=== PATIENT | male | born 1955 | race Caucasian/White ===

== ENCOUNTER 2024-12-07 08:26 | Outpatient (REF) | payer OTHER, SELFPAY ==
--- NOTE | ~2024-12-07 | US_ITS ---
CLINICAL HISTORY: epigastric pain US abdomen complete Comparison: None Provided Findings: Gallbladder unremarkable, no stone formation or wall thickening. Common duct measures 3.0 mm. No sonographic Archer sign. Liver is homogeneous and normal in size and echogenicity. Main portal vein patent with normal direction of flow. Pancreas is unremarkable. Aorta and IVC patent and normal in caliber. The right kidney is normal, 10.4 cm in length. No focal abnormality or hydronephrosis. The left kidney is normal, 10.5 cm in length. No focal abnormality or hydronephrosis. The spleen is normal, 9.3 cm in length. No focal abnormality. Impression: No significant abnormalities. This document has been electronically signed by: Mic Pryor MD on 12/07/2024 20:34:56
--- OUTSIDE RECORDS SUMMARY | 2024-12-07 08:45 | XMS_ITS | Clinical Summary ---
Author Organization [facility] Address [address] [place] [address] Care Team Providers Care Woodwinds Teacher Name Role Phone Unavailable Primary Care Provider [...] Description 01/18/2025 2:30 PM EST Procedure visit [facility] [place] [address] [place] [phone] Danis Garrido MD [address] [place] [address] Elizabeth Sawyer Au.D [address] [place] [address] Health Maintenance Due Date Last Done Comments [...] patient's age to complete this topic Insurance [facility]
--- OUTSIDE RECORDS SUMMARY | 2024-12-07 08:45 | XMS_ITS | Patient Health Record ---
Author Organization [facility] Address [address] [place] [address] Care Team Providers Care Sheriff Name Role Phone Jakub Bradford MD Primary Care Provider Varun Connell [phone] Allergies No Known Allergies Reason For Referral [...] Status Risk Notes Problem Colon cancer screening (790537961) Colon cancer screening (Z12.11) Active confirmed Problem Epigastric pain (60829799) Epigastric pain (R10.13) Active confirmed Problem History of adenomatous polyp of colon (969696222) History of adenomatous polyp of colon (Z86.0101) Active confirmed Vital Signs Blood pressure diastolic 77 mm Hg 10/21/2024 Height 71 in 10/21/2024 Blood pressure systolic 111 mm Hg 10/21/2024 Weight 181 lbs 10/21/2024 BMI 25.24 kg/m2 10/21/2024 Procedures Procedure Date Ordered Date Performed Result Body Sit e COLONOSCOPY 10/21/2024 N/A Encounters Encounter Location Date Provider Diagnosis [facility] [address] [place] [phone] 10/21/2024 Varun Brandon History of adenomato us [...] continue to watch his diet and use hjuf-zuf-npnxabx acid suppression as needed. I did advise [...] continue to watch his diet and use uirx-xot-jucvldv acid suppression as needed. I did advise [...] continue to watch his diet and use kofz-fbl-xseepys acid suppression as needed. I did advise [...] Provider Name:Varun Brandon , 01/21/2025 10:30:00 AM, [address] [place] [address] , [place], [place], [phone], Insurance Providers Payer Name Payer Address Payer Phone Subscriber Number Group Number Insured Name Patient Relationship to Insured Coverage Start Date Coverage End Date [facility] [address] [place] [phone] [id number] FARHANA MURRAY Self - patient is the insured Medical (General) History Medical History History ICD Code Colonoscopy 02-15-03-negative EGD 02-23-2002 and 08/2011--n egative except for a small hiatal hernia--there was no evidence of any esophagitis, H. pylori, nor celiac disease Meniere's disease Denies MD,DM,CVA,Lung disease,renal dise ase Screening colonoscopy in with [...]
--- OUTSIDE RECORDS SUMMARY | 2024-12-07 08:45 | XMS_ITS | Patient Health Record ---
Author Organization [facility] Address [address] [facility] [place] [address] Care Team Providers Care Temperature Inspector Name Role Phone Jakub Bradford MD Primary Care Provider Reji Morales Unavailable [phone] Allergies No Known Allergies Reason For Referral [...] primary osteoarthritis of the ankle and/or foot (214376467) Primary osteoarthrit is, left ankle and foot (M19.072) Active confirmed Problem Acquired hammer toe of left foot (5286198272658936) Other hammer toe(s) (acquired), left foot (M20.42) Active confirmed Plan Of Treatment Pending Test Test Name Order Date X ray : Foot, left 3V 07/03/2022 Insurance Providers Payer Name Payer Address Payer Phone Subscriber Number Group Number Insured Name Patient Relationship to Insured Coverage Start Date Coverage End Date [facility] [address] [facility] [id number] Paco Barajas Self - patient is the insured 3 Medical (General) History Medical History History ICD Code Menieres disease Reflux ( GERD) Mumps Chicken pox Surgical History Surgery Date(Month/Year)
== END 2024-12-07 08:27 | disposition home or self-care (01) ==
LOC: HO.US 08:26
PROVIDERS: PCP Internal Medicine; Visit Provider Internal Medicine
DX: R10.13 Epigastric pain (principal)
CPT/HCPCS: 76700

== ENCOUNTER → 2024-12-07 08:47 | Outpatient (BNV) | payer OTHER, SELFPAY | PROVIDERS: PCP Internal Medicine; Visit Provider Radiology Diagnostic Radiology | DX: R10.13 Epigastric pain (principal) | CPT/HCPCS: 76700 ==

== ENCOUNTER 2025-01-21 08:23 | Day surgery (SDC) | payer OTHER, SELFPAY ==
--- OUTSIDE RECORDS SUMMARY | 2024-11-30 09:18 | XMS_ITS | Patient Health Record ---
Author Organization [facility] Address [address] [place] [address] Care Team Providers Care Securities Sales Associate Name Role Phone Jakub Bradford MD Primary Care Provider Reji Morales Unavailable [phone] Allergies No Known Allergies Reason For Referral No Information Medications Medication SIG (Take, Route, Frequency, Duration) Notes Start Date End Date Status Voltaren 1 % as directed Externally 07/03/2022 Active Ambien 10 MG 1 tablet at bedtime as needed Active Social History Tobacco Use: Social History Observation Description Date Details (start date - stop date) Never Smoker NA - NA Tobacco Use/Smoking Question Answer Notes Are you a: nonsmoker Alcohol Screen Question Answer Notes Did you have a drink containing alcohol in the p ast year? Yes Points 0 Interpretation Negative Tobacco use other than smoking: Question Answer Notes Are you an other tobacco user? No Problems Problem Type SNOMED Code ICD Code Onset Dates Problem Status W/U Status Risk Notes Problem Localized, primary osteoarthritis of the ankle and/or foot (111028332) Primary osteoarthrit is, left ankle and foot (M19.072) Active confirmed Problem Acquired hammer toe of left foot (2290389564949003) Other hammer toe(s) (acquired), left foot (M20.42) Active confirmed Plan Of Treatment Pending Test Test Name Order Date X ray : Foot, left 3V 07/03/2022 Insurance Providers Payer Name Payer Address Payer Phone Subscriber Number Group Number Insured Name Patient Relationship to Insured Coverage Start Date Coverage End Date [facility] [address] [facility] [id number] Paco Barajas Self - patient is the insured 3 Medical (General) History Medical History History ICD Code Menieres disease Reflux ( GERD) Mumps Chicken pox Surgical History Surgery Date(Month/Year)
--- OUTSIDE RECORDS SUMMARY | 2024-11-30 09:18 | XMS_ITS ---
Author Name [facility] Organization Unknown Care Team Organization Name Specialty Phone Email Start Date End [facility] 11/16/2024
--- OUTSIDE RECORDS SUMMARY | 2024-11-30 09:18 | XMS_ITS | Patient Health Record ---
Author Organization [facility] Address [address] [place] [address] Care Team Providers Care Early Morning Name Role Phone Jakub Bradford MD Primary Care Provider Varun Connell [phone] Allergies No Known Allergies Reason For Referral No Information Medications Medication SIG (Take, Route, Frequency, Duration) Notes Start Date End Date Status Atorvastatin Calcium 40 MG 1 tablet Oral ly Once a day Active Multivitamin - 1 tablet Orally Once a day Active Ambien Active Problems Problem Type SNOMED Code ICD Code Onset Dates Problem Status W/U Status Risk Notes Problem Colon cancer screening (024516429) Colon cancer screening (Z12.11) Active confirmed Problem Epigastric pain (97385761) Epigastric pain (R10.13) Active confirmed Problem History of adenomatous polyp of colon (632330638) History of adenomatous polyp of colon (Z86.0101) Active confirmed Vital Signs Blood pressure diastolic 77 mm Hg 10/21/2024 Height 71 in 10/21/2024 Blood pressure systolic 111 mm Hg 10/21/2024 Weight 181 lbs 10/21/2024 BMI 25.24 kg/m2 10/21/2024 Procedures Procedure Date Ordered Date Performed Result Body Sit e COLONOSCOPY 10/21/2024 N/A Encounters Encounter Location Date Provider Diagnosis [facility] [address] [place] [phone] 10/21/2024 Varun Brandon History of adenomato us polyp of colon Z86.0101 ; Epigastric pain R10.13 and Colon cancer screening Z12.11 Assessments Encounter Date Diagnosis (ICD Code) Assessment Notes Treatment Notes Treatment Clinical Notes Section Notes 10/21/2024 Epigastric pain (ICD-10 - R10.13) Overall, Lawrence appears quite well. He is not having any particularly worrisome or new GI symptoms. His reflux does not seem worrisome and given previously negative upper endoscopies, relatively infrequent symptoms, and no worrisome symptoms such as dysphagia or anorexia, I do not think an upper endoscopy is required. I did advise him to continue to watch his diet and use qgeq-uec-mgrfezr acid suppression as needed. I did advise him to certainly let me know if things worsen in that regard or he develops any other symptoms such as dysphagia or anorexia. I did recommend an abdominal ultrasound just to rule out gallstones given the occasional symptoms, as well as 1 that awakened him at night last year that prompted his negative cardiac workup. Lastly, I did recommend a colonoscopy for screening given his last one being about 10 years ago and the finding of a small tubular adenoma at that time. We did review the rationale for that in regard to colon cancer prevention. Full consent has been taken for this, including risks of bleeding and perforation. The procedure will be done with monitored anesthesia care. Lawrence was comfortable with this plan. Thank you again for allowing me to participate in Lawrence's care. I shall continue to keep you advised of his progress. 10/21/2024 History of adenomatous polyp of colon (ICD-10 - Z86.0101) Overall, Lawrence appears quite well. He is not having any particularly worrisome or new GI symptoms. His reflux does not seem worrisome and given previously negative upper endoscopies, relatively infrequent symptoms, and no worrisome symptoms such as dysphagia or anorexia, I do not think an upper endoscopy is required. I did advise him to continue to watch his diet and use piiw-gva-jmrrhcv acid suppression as needed. I did advise him to certainly let me know if things worsen in that regard or he develops any other symptoms such as dysphagia or anorexia. I did recommend an abdominal ultrasound just to rule out gallstones given the occasional symptoms, as well as 1 that awakened him at night last year that prompted his negative cardiac workup. Lastly, I did recommend a colonoscopy for screening given his last one being about 10 years ago and the finding of a small tubular adenoma at that time. We did review the rationale for that in regard to colon cancer prevention. Full consent has been taken for this, including risks of bleeding and perforation. The procedure will be done with monitored anesthesia care. Lawrence was comfortable with this plan. Thank you again for allowing me to participate in Lawrence's care. I shall continue to keep you advised of his progress. 10/21/2024 Colon cancer screening (ICD-10 - Z12.11) Overall, Lawrence appears quite well. He is not having any particularly worrisome or new GI symptoms. His reflux does not seem worrisome and given previously negative upper endoscopies, relatively infrequent symptoms, and no worrisome symptoms such as dysphagia or anorexia, I do not think an upper endoscopy is required. I did advise him to continue to watch his diet and use vuwv-uez-gckqlxa acid suppression as needed. I did advise him to certainly let me know if things worsen in that regard or he develops any other symptoms such as dysphagia or anorexia. I did recommend an abdominal ultrasound just to rule out gallstones given the occasional symptoms, as well as 1 that awakened him at night last year that prompted his negative cardiac workup. Lastly, I did recommend a colonoscopy for screening given his last one being about 10 years ago and the finding of a small tubular adenoma at that time. We did review the rationale for that in regard to colon cancer prevention. Full consent has been taken for this, including risks of bleeding and perforation. The procedure will be done with monitored anesthesia care. Lawrence was comfortable with this plan. Thank you again for allowing me to participate in Lawrence's care. I shall continue to keep you advised of his progress. Plan Of Treatment Pending Test Test Name Order Date COLONOSCOPY 10/21/2024 US abdomen complete 10/21/2024 Future Test Test Name Order Date COLONOSCOPY 08/16/2014 Next Appt Details Provider Name:Varun Brandon , 01/21/2025 10:30:00 AM, [address] [place] [address] , [place], [place], [phone], Insurance Providers Payer Name Payer Address Payer Phone Subscriber Number Group Number Insured Name Patient Relationship to Insured Coverage Start Date Coverage End Date [facility] [address] [place] [phone] [id number] FARHANA MURRAY Self - patient is the insured Medical (General) History Medical History History ICD Code Colonoscopy 02-15-03-negative EGD 02-23-2002 and 08/2011--n egative except for a small hiatal hernia--there was no evidence of any esophagitis, H. pylori, nor celiac disease Meniere's disease Denies [place],DM,CVA,Lung disease,renal dise ase Screening colonoscopy in with removal of a small tubular adenoma. He did not come in for his 5-year recall letter but describes having done some negative stool cards a couple of years ago, although he says it was not a Cologuard test. Negative gallbladder ultrasound in 2011 He describes a negative stress test and normal echocardiogram in 2023
--- OUTSIDE RECORDS SUMMARY | 2024-11-30 09:18 | XMS_ITS | Clinical Summary ---
Author Organization [facility] Address [address] [place] [address] Care Team Providers Care Administrative Job Titles Name Role Phone Unavailable Primary Care Provider Unavailabl e Social History Tobacco Use Types Packs/Day Years Used Date Smoking Tobacco: Never Assessed Sex and Gender Information Value Date Recorded Sex Assigned at Not on file Legal Sex Male 11:38 AM EDT Gender Identity Not on file Sexual Orientation Not on file Plan of Treatment Upcoming Encounters Date Type Department Care Team (Late st Contact Info) Description 01/18/2025 2:30 PM EST Procedure visit [facility] [place] [address] [place] [phone] Danis Garrido MD [address] [place] [address] Elizabeth Sawyer Au.D [address] [place] [address] Health Maintenance Due Date Last Done Comments Advance Care Planning 1955 Hepatitis C Virus Screening 1955 DTaP/Tdap/Td Vaccines (1 - Tdap) 09/03/1975 Colonoscopy 2001 Pneumococcal Vaccines 50+ (1 of 1 - PCV) 2006 Zoster (Shingles) Vaccine (1 of 2) 2006 Influenza Vaccine 10/08/2024 COVID-19 Vaccine ( - 2023-2 5 season) 2024 RSV Vaccine 60 years and old er and Patients (1 - 1-dose 75+ series) 09/03/2031 Hepatitis B Vaccines Aged Out No long er eligible based on patient's age to complete this topic Insurance [facility]
--- OUTSIDE RECORDS SUMMARY | 2024-11-30 09:18 | XMS_ITS | Encounter Summary ---
Author Organization [facility] Address [address] [place] [address] Phone Care Team Providers Care Electrician Helper Automotive Name Role Phone Jakub Bradford MD Primary Care Provider [phone] Encounter Details Date Type Department Care Team (Late st Contact Info) Description 03/19/2021 Procedure [facility], Ct Scan - [address] [address] Social History Tobacco Use Types Packs/Day Years Used Date Smoking Tobacco: Never Smokeless Tobacco: Never Alcohol Use Standard Drinks/Week Comments Yes 4 (1 standard drink = 0.6 oz pur e alcohol) Sex and Gender Information Value Date Recorded Sex Assigned at Male 03/24/2019 7:19 PM EST Legal Sex Male 6:58 PM EST Gender Identity Male 03/24/2019 7:19 PM EST Sexual Orientation Straight 03/24/2019 7: 19 PM EST documented as of this encounter Functional Status * Calculated C-SSRS Risk Score (Lifetime/Recent) Answer Date of Assessment Author No Risk Indicated 03/19/2021 8:48 AM Bernice Fong, CAITLYN * Tyrrell Suicide Severity Rating Scale (Screener/Recent Self-Report) Question Answer Date of Assessment Author 1. Wish to be (Past 1 Month) No 022 8:48 AM Bernice Fong, RN 2. Non-Specific Active Suici aden Thoughts (Past 1 Month) No 03/19/2021 8:48 AM Bernice Fong, RN 6. Suicidal Behavior (Lifetime) No 8:48 AM Bernice Fong RN documented as of this encounter Plan of Treatment Not on file documented as of this encounter Visit Diagnoses Not on filedocumented in this encounter Care Teams Electrician Helper Automotive Relationship Specialty Start Date End Date Jakub Bradford MD [address] [place] [address] PCP - General Internal Medicine 03/19/21 documented as of this encounter Additional Source Comments The information contained in this document represents components of the legal health record. It is not the complete legal health record.[facility]
--- OUTSIDE RECORDS SUMMARY | 2024-11-30 09:18 | XMS_ITS | Clinical Summary ---
Author Organization [facility] Address [address] [place] [address] Phone Care Team Providers Care Gluer And Wedger Name Role Phone Jakub Bradford MD Primary Care Provider Allergies No known active allergies Medications zolpidem (AMBIEN) 5 MG tablet Take 5 mg by mouth nightly at bedtime as needed for sleep. Active Immunizations Immunization Administration Dates Next Due COVID-19 (Pre-12/30) Pfizer Vaccine, mRNA, PF ,06/03/2020 Social History Tobacco Use Types Packs/Day Years Used Date Smoking Tobacco: Never Smokeless Tobacco: Never Alcohol Use Standard Drinks/Week Comments Yes 4 (1 standard drink = 0.6 oz pur e alcohol) Education Answer Date Recorded Are you interested in more education? Not on west e 07/05/2022 Are you concerned about learning? Not on file 07/05/2022 No 07/05/2022 No 07/05/2022 Digital Access Answer Date Recorded No 08/03/2022 No 08/03/2022 No 08/03/2022 Reliable internet access at home? Not on file 08/03/2022 Device with a working camera? Not on file Intimate Partner Violence Answer Date R ecorded Are you denied basic needs s uch as food, clothing, or medical care? No 05/26/2023 In the past 12 months have y ou been in a relationship with a person who hurts, threatens, or tries to control you? No 05/26/2023 Are you denied basic needs s uch as food, clothing, or medical care? No 05/26/2023 In the past 12 months have y ou been in a relationship with a person who hurts, threatens, or tries to control you? No 05/26/2023 Sex and Gender Information Value Date Recorded Sex Assigned at Male 03/24/2019 7:19 PM EST Legal Sex Male 6:58 PM EST Gender Identity Male 03/24/2019 7:19 PM EST Sexual Orientation Straight 03/24/2019 7: 19 PM EST Last Filed Vital Signs Vital Sign Reading Time Taken Comments Blood Pressure 147/84 05/26/2023 8:59 AM EDT Pulse 98 05/26/2023 8:59 AM EDT Temperature 36.7 C (98.1 F) 05/26/2023 8:59 AM EDT Respiratory Rate 19 05/26/2023 8:59 AM EDT Oxygen Saturation 98% 05/26/2023 8:59 AM EDT Inhaled Oxygen Concentration - - Weight 79.4 kg (175 lb) 05/26/2023 4:45 AM EDT Height 180.3 cm (5' 11 ) 05/26/2023 4:45 AM EDT Body Mass Index 24.41 05/26/2023 4:45 AM EDT Plan of Treatment Health Maintenance Due Date Last Done Comments LIPID PANEL 1956 DEPRESSION SCREENING 1968 HEPATITIS C SCREENING 1974 COLOGUARD 2001 COLONOSCOPY 2001 COLORECTAL CANCER SCREENING 2001 FIT TEST 2001 FOBT 2001 SIGMOIDOSCOPY 2001 VIRTUAL COLONOSCOPY 2001 PNEUMOCOCCAL VACCINES (50+ years) (1 of 1 - PCV) 2006 ZOSTER VACCINES (1 of 2) 2006 INFLUENZA VACCINE (#1) 2024 , 03/17/2019 COVID-19 VACCINE (3 - 2024-2 6 season) 2024 06/24/2020, 06/03/2020 Adult Td,Tdap Booster 03/17/2029 03/17/2019 RSV VACCINE (1 - 1-dose 75+ series) 09/03/2031 SMOKING STATUS SCREENING (On ce After 26 Yrs) Completed 03/24/2019 HEPATITIS A VACCINES Aged Out No long er eligible based on patient's age to complete this topic HIB VACCINES Aged Out No longer eligi ble based on patient's age to complete this topic MENINGOCOCCAL VACCINES (ACWY) Aged Out No longer eligible based on patient's age to complete this topic MENINGOCOCCAL VACCINES (B) Aged Out N o longer eligible based on patient's age to complete this topic Medical Devices Not on file Insurance [address] [place] [address] [address] [place] [place] [id number] HMO Member Subscriber Plan / Payer (Ef fective 2021-Present) Name:Paco Barajas Relation to Subscriber:Self Name:Paco Barajas Payer ID:Not on file Type:HMO Address: [place] [id number] [place] [address] HMO Member Subscriber Plan / Payer (Ef fective 2021-Present) Name:Paco Barajas Relation to Subscriber:Self Name:Paco Barajas Payer ID:Not on file Type:HMO Address: [place] [id number] Care Teams Gluer And Wedger Relationship Specialty Start Date End Date Jakub Bradford MD [address] [place] [address] PCP - General Internal Medicine 03/19/21 Additional Source Comments The information contained in this document represents components of the legal health record. It is not the complete legal health record.[facility]
[2025-01-19 14:27] VITALS: BMI 25.2
--- NOTE | 2025-01-20 08:26 | HO.ANESPROP2 ---
Documented by User: Lorie Willis NP 01/20/25 08:26 HPI - Anesthesia Eval Consult details Narrative: 69yo M for Colonoscopy [facility] Past Medical History Medical History Mitral annular calcification Subclinical hypothyroidism Leukopenia Insomnia Hypercholesteremia GERD (gastroesophageal reflux disease) Allergic rhinitis Meniere's disease Surgical History Surgical History Hx of colonoscopy (2014) Social History Social History Household Members: Spouse Housing: House Patient Tobacco Use Status: Never used Tobacco Use of substances other than those prescribed or required for medical reasons: No Are you DNR?: No Advance Directives: No Advance Directives Information Provided: Yes Meds Allergies Allergy/AdvReac Type Severity Reaction Status Date / Time No Known Allergies Allergy Verified 01/19/25 14:48 Home Medications ?Medication ?Instructions ?Recorded ?Confirmed ?Last Taken ?Type atorvastatin 40 mg tablet 40 mg PO BEDTIME 01/19/25 01/19/25 Unknown History multivitamin 1 tab PO DAILY 01/19/25 01/19/25 Unknown History hydrochlorothiazide 50 mg tablet 50 mg PO DAILY PRN Meniere's 01/21/25 01/21/25 Unknown History zolpidem 10 mg tablet (Ambien) 10 mg BEDTIME PRN Insomnia 01/21/25 01/21/25 Unknown History Exam Height,Weight and Vital Signs: Height 5 ft 11 in Weight 82.1 kg Assessment and Plan Assessment Anesthesia Assessment: Chart Reviewed Documented by User: Johana Pryor MD 01/21/25 10:29 [facility] Past Medical History Medical History Mitral annular calcification Subclinical hypothyroidism Leukopenia Insomnia Hypercholesteremia GERD (gastroesophageal reflux disease) Allergic rhinitis Meniere's disease Functional capacity: wheelchair bound Surgical History Surgical History Hx of colonoscopy (2014) History of Problems with Anesthesia: No Social History Social History Household Members: Spouse Housing: House Patient Tobacco Use Status: Never used Tobacco Use of substances other than those prescribed or required for medical reasons: No Are you DNR?: No Advance Directives: No Advance Directives Information Provided: Yes Meds Allergies Allergy/AdvReac Type Severity Reaction Status Date / Time No Known Allergies Allergy Verified 01/19/25 14:48 Home Medications ?Medication ?Instructions ?Recorded ?Confirmed ?Last Taken ?Type atorvastatin 40 mg tablet 40 mg PO BEDTIME 01/19/25 01/19/25 Unknown History multivitamin 1 tab PO DAILY 01/19/25 01/19/25 Unknown History hydrochlorothiazide 50 mg tablet 50 mg PO DAILY PRN Meniere's 01/21/25 01/21/25 Unknown History zolpidem 10 mg tablet (Ambien) 10 mg BEDTIME PRN Insomnia 01/21/25 01/21/25 Unknown History Exam Airway Mallampati Class: II TM Dist: >3cm Neck ROM: Full Loose/Missing/Broken Teeth: No Heart: RRR Lungs: CTA Assessment and Plan Assessment Anesthesia Assessment: Anesthesia Plan Discussed Final Anesthetic Review History of Problems with Anesthesia: No NPO: Yes ASA Class: II Final Preanesthetic Review: Meds/Allgs Chart Reviewed, Consent Obtained/Reviewed and Anes Risks/Benef Reviewed Patient Risk: Low Procedure Risk: Low Anesthetic Plan Anesthetic Plan: MAC: Disposition: Standard PACU
[2025-01-21 08:44] VITALS: BP 137/79; PULSE 82; RESP 16; TEMP 36.4; O2SAT 97
[2025-01-21 08:45] VITALS: BMI 24.3
[2025-01-21] MEDS: Lactated Ringers 1,000 ML 100 ML IVCONT (09:05)
[2025-01-21 11:32] VITALS: BP 139/80; PULSE 72; RESP 15; TEMP 36.2; O2SAT 97
--- NOTE | 2025-01-21 11:34 | P.BOP_ITS ---
Brief Operative Note Date of Service: 01/21/25 Pre-op diagnosis: Screening Post-op diagnosis: other (Polyp) Procedure: Colonoscopy to the cecum with bx/removal of polyp Surgeon: Varun Brandon MD Anesthesia: MAC Was an [employer] used for this Procedure?: No Estimated blood loss (mL): 2.0 Pathology: other (A. Cecal polyp) Condition: stable Disposition: PACU
[2025-01-21 11:47] VITALS: BP 128/89; PULSE 77; RESP 12; TEMP 36.8; O2SAT 98
[2025-01-21 11:55] VITALS: TEMP 37.2
--- NOTE | 2025-01-21 12:42 | OP_ITS ---
DATE OF SERVICE: 01/21/2025 SURGEON: Varun Brandon MD INDICATIONS: The patient presents for evaluation of personal history of a tubular adenoma and colorectal cancer screening. Full consent has been obtained from him for this, including risks of bleeding and perforation. PREOPERATIVE DIAGNOSIS: POSTOPERATIVE DIAGNOSIS: PROCEDURE PERFORMED: Colonoscopy to the cecum with biopsy and removal of polyp. ESTIMATED BLOOD LOSS: COMPLICATIONS: ANESTHESIA: Medication used, monitored anesthesia care. ASSISTANTS: SPECIMENS: PREOPERATIVE DIAGNOSES: Colorectal cancer screening and personal history of tubular adenoma of the colon. POSTOPERATIVE DIAGNOSES: Colorectal cancer screening and personal history of tubular adenoma of the colon, small colon polyp, diverticulosis, and internal hemorrhoids. DESCRIPTION OF PROCEDURE: The patient was placed in the left lateral decubitus position. The digital rectal exam revealed no abnormalities. The Olympus video pediatric colonoscope was entered into the rectum and advanced easily to the cecum. Once in the cecum, I did identify cecal pouch with appendiceal orifice and a normal-appearing ileocecal valve. The entire cecum was well visualized and appeared normal other than a 3 mm polyp, which was biopsied and completely removed with a cold biopsy forceps. The remainder of the cecum and ileocecal valve appeared normal. The scope was slowly withdrawn assessing all mucosal surfaces carefully. Preparation was excellent. I did not visualize any other polyps, colitis, nor angiodysplasia. There was a mild amount of sigmoid diverticulosis. In the rectum, scope was retroflexed visualizing internal hemorrhoids, but no other pathology. The rectal mucosa appeared normal. The scope was straightened and withdrawn from the patient. He tolerated the procedure well and was returned to the recovery area in stable condition. IMPRESSION: 1. Small colon polyp. 2. Diverticulosis. 3. Internal hemorrhoids. PLAN: The results of the biopsies will be checked. I would recommend a repeat colonoscopy in 5 years for further screening. He will otherwise see me on a p.r.n. basis. Varun Brandon MD RMJeb/PRANAV / [id number]
== END 2025-01-21 12:25 | disposition home or self-care (01) ==
PROVIDERS: PCP Internal Medicine; Visit Provider Internal Medicine
PROC: 0DJD8ZZ Inspection of Lower Intestinal Tract, Via Natural or Artificial Opening Endoscopic (ICD-10-PCS; CPT 45378; principal; 2025-01-21 09:30)
DX: Z12.11 Encounter for screening for malignant neoplasm of colon (principal); Z86.0101 Personal history of adenomatous and serrated colon polyps; D12.0 Benign neoplasm of cecum; K57.30 Diverticulosis of large intestine without perforation or abscess without bleeding; K64.8 Other hemorrhoids; K21.9 Gastro-esophageal reflux disease without esophagitis; R10.13 Epigastric pain; H81.09 Meniere's disease, unspecified ear; Z79.899 Other long term (current) drug therapy
CPT/HCPCS: 45380; 88305; J2003; J2704